=== PATIENT | male | born 1945 | race Caucasian/White ===

== ENCOUNTER 2018-06-22 06:40 | Day surgery (SDC) | payer MEDICARE, OTHER ==
[2018-06-21 16:06] LABS: BASOPHILS % (AUTO) 0.5 % (0-1); EOSINOPHILS # (AUTO) 0.4 X10'3 (0-0.9); EOSINOPHILS % (AUTO) 5.8 % (0-6); LYMPHOCYTES % (AUTO) 31.8 % (21-51); MEAN CORPUSCULAR HEMOGLOBIN 29.2 PG (27.0-31.0); MEAN CORPUSCULAR VOLUME 85.8 FL (78-98); MEAN PLATELET VOLUME 9.2 FL (7.4-10.4); MONOCYTES # (AUTO) 0.7 X10'3 (0-0.9); MONOCYTES % (AUTO) 11.7 % (2-12); NEUTROPHILS # (AUTO) 3.1 X10'3 (1.8-7.7); NEUTROPHILS % (AUTO) 50.2 % (42-75); PRE OP HEMATOCRIT 43.6 % (42.0-52.0); PRE OP HEMOGLOBIN 14.9 g/dL (14.0-17.9); PRE OP PLATELET COUNT 156 X10'3 (140-440); RED BLOOD COUNT 5.08 X10'6 (4.70-6.10); RED CELL DISTRIBUTION WIDTH 15.5 % (11.5-14.5)
[2018-06-21 16:09] LABS: CLARITY,URINE CLEAR (Clear); COLOR,URINE YELLOW (Yellow); GLUCOSE, URINE NEGATIVE (Neg); KETONES,URINE NEGATIVE (Neg); LEUKOCYTE ESTERASE ,URINE NEGATIVE (Neg); NITRITES, URINE NEGATIVE (Neg); OCCULT BLOOD,URINE NEGATIVE (Neg); PH,URINE 5.5 (4.8-8.0); PROTEIN,URINE NEGATIVE (Neg); UA COLLECTION TYPE CLN CATCH MIDSTREAM; UROBILINOGEN,URINE 0.2 E.U/dL (0.2-1.0)
[2018-06-21 16:21] LABS: ALBUMIN/GLOBULIN RATIO 1.2 (1.1-1.5); ALKALINE PHOSPHATASE 61 IU/L (46-116); BLOOD UREA NITROGEN 19 MG/DL (7-18); BUN/CREATININE RATIO 18.1 (5.4-32.0); CALCIUM 8.9 MG/DL (8.5-10.1); CHLORIDE 100 MMOL/L (99-107); CREATININE 1.05 MG/DL (0.60-1.10); PRE OP ALT 28 U/L (30-65); PRE OP ANION GAP 11 (8-16); PRE OP AST 23 U/L (10-37); PRE OP BILIRUB, TOTAL 0.6 MG/DL (0.0-1.0); PRE OP GLUCOSE 107 MG/DL (70-104); PRE OP POTASSIUM 4.5 MMOL/L (3.4-5.1); PRE OP SODIUM 138 MMOL/L (135-145); TOTAL CARBON DIOXIDE 27.3 MMOL/L (24-32); TOTAL PROTEIN 7.3 G/DL (6.4-8.2); eGFR 69 ML/MIN
[2018-06-22] VITALS (12 sets, daily range): BP systolic 112–185; BP diastolic 72–132
[~2018-06-22] VITALS: Ht 188 cm; Wt 125.1 kg
[~2018-06-22 06:40] MED LIST: ALPR-624 PO; ATOR20TA PO; CITA-279 PO; Cefazolin 2GM/50ML dext iso,osmotic IVPB IV ONE; FINA5TAB11 PO; famotidine 20mg tablet PO ONE; ringers solution, lacted 1,000 ML IV SCH
[2018-06-22] MEDS ORDERED: LIDOcaine 1% (10mg/ml) 2ml vial ONE (07:22)
[2018-06-22] MEDS ORDERED: ceFAZolin 1000mg inj ONE (09:55)
[2018-06-22] MEDS ORDERED: BUPIVAcaine/PF 2.5mg/ml (0.25%) 10ml vial ONE (09:56)
[2018-06-22] MEDS ORDERED: sevoflurane 250ml liquid IH ONE (10:00)
[2018-06-22] MEDS ORDERED: neostigmine methylsulfate 1 MG/ML 10ml vial ONE (10:00)
[2018-06-22] MEDS ORDERED: dexamethasone sod phosphate 10mg/ml inj ONE (10:00)
[2018-06-22] MEDS ORDERED: midazolam 2 mg/2 ml injection ONE (10:11)
[2018-06-22] MEDS ORDERED: glycopyrrolate 0.2mg/ml inj ONE (10:18)
[2018-06-22] MEDS ORDERED: fentaNYL/PF 50MCG/1 ML 2ML syringe ONE (10:18)
[2018-06-22] MEDS ORDERED: propofol inj 20 ML IV ONE (10:18)
[2018-06-22] MEDS ORDERED: rocuronium 10mg/ml inj IV ONE (10:18)
[2018-06-22] MEDS ORDERED: LIDOcaine 2% (20mg/ml) 5ml vial ONE (10:18)
[2018-06-22] MEDS ORDERED: ePHEDrine 50MG/ML INJ. ONE (10:25)
[2018-06-22] MEDS ORDERED: ondansetron/PF 4mg/2ml inj ONE (10:28)
[2018-06-22] MEDS ORDERED: ringers solution, lacted 1,000 ML IV SCH (10:53)
[2018-06-22] MEDS ORDERED: hydrALAZINE 20mg/ml inj. IV PRN (10:55)
[2018-06-22] MEDS ORDERED: ondansetron/PF 4mg/2ml inj IV PRN (10:55)
[2018-06-22] MEDS ORDERED: morphine 4 MG/ML inj SYRINge IV PRN (10:55)
[2018-06-22] MEDS ORDERED: labetalol 20mg/4ml (5mg/ml) syringe IV PRN (10:55)
[2018-06-22] MEDS: morphine 4 MG/ML inj SYRINge IV PRN ×3 (11:51→12:21)
[2018-06-22] MEDS ORDERED: meperidine/PF 25mg/ml syringe ONE (12:06)
[2018-06-22] MEDS ORDERED: acetaminophen 1,000mg/100ml IV 100 ML IV ONE (12:10)
[2018-06-22] MEDS ORDERED: ketorolac tromethamine 15mg/ml inj. IV ONE (12:10)
[2018-06-22] MEDS ORDERED: HYDROcodone/acetaminophen 10/325mg tab PO ONE (12:25)
== END 2018-06-22 13:30 | disposition home or self-care (01) ==
LOC: PRE-OP 06:40 → PAS 13:30
PROVIDERS: ATTEND Surgery
DX: K40.20 Bilateral inguinal hernia, without obstruction or gangrene, not specified as recurrent (principal); D17.1 Benign lipomatous neoplasm of skin and subcutaneous tissue of trunk; F41.8 Other specified anxiety disorders; J45.998 Other asthma; N40.0 Benign prostatic hyperplasia without lower urinary tract symptoms; E11.9 Type 2 diabetes mellitus without complications; M19.90 Unspecified osteoarthritis, unspecified site; I45.19 Other right bundle-branch block; G47.33 Obstructive sleep apnea (adult) (pediatric); E66.01 Morbid (severe) obesity due to excess calories; K21.9 Gastro-esophageal reflux disease without esophagitis; Z68.35 Body mass index [BMI] 35.0-35.9, adult; Z90.49 Acquired absence of other specified parts of digestive tract; Z79.891 Long term (current) use of opiate analgesic; Z79.2 Long term (current) use of antibiotics; Z87.891 Personal history of nicotine dependence; Z79.899 Other long term (current) drug therapy; Z98.890 Other specified postprocedural states
CPT/HCPCS: 21931; 36415; 49650; 80053; 81003; 85025; 93005; A4315; A6258; C1781; J0131; J0690; J1100; J1885; J2001; J2175; J2250; J2270; J2405; J2704; J2710; J3010; J3490; J7120

== ENCOUNTER 2018-08-03 07:07 | Day surgery (SDC) | payer MEDICARE, OTHER ==
[2018-08-03] VITALS (7 sets, daily range): BP systolic 115–148; BP diastolic 59–92
[~2018-08-03] VITALS: Ht 188 cm; Wt 124.4 kg
[2018-08-03] MEDS: ringers solution, lacted 1,000 ML IV SCH ×2 (05:00→07:43)
[~2018-08-03 07:07] MED LIST changes: -Cefazolin 2GM/50ML dext iso,osmotic IVPB IV ONE; +ceFAZolin inj. 3,000 MG in normal saline 100ml IV soln 100 ML IV ONE
[2018-08-03] MEDS ORDERED: LIDOcaine 1% (10mg/ml) 2ml vial ONE (07:31)
[2018-08-03 08:14] LABS: BASOPHILS % (AUTO) 0.8 % (0-1); EOSINOPHILS # (AUTO) 0.2 X10'3 (0-0.9); EOSINOPHILS % (AUTO) 4.2 % (0-6); HEMOGLOBIN 14.1 g/dl (14.0-17.9); LYMPHOCYTES # (AUTO) 1.3 X10'3 (1.1-4.8); LYMPHOCYTES % (AUTO) 25.6 % (21-51); MEAN CORPUSCULAR HEMOGLOBIN 29.8 PG (27.0-31.0); MEAN CORPUSCULAR HGB CONC 34.4 % (33.0-36.5); MEAN CORPUSCULAR VOLUME 86.6 FL (78-98); MEAN PLATELET VOLUME 8.9 FL (7.4-10.4); MONOCYTES # (AUTO) 0.5 X10'3 (0-0.9); MONOCYTES % (AUTO) 10.1 % (2-12); NEUTROPHILS # (AUTO) 2.9 X10'3 (1.8-7.7); NEUTROPHILS % (AUTO) 59.3 % (42-75); PLATELET COUNT 144 X10'3 (140-440); RED BLOOD COUNT 4.74 X10'6 (4.70-6.10); RED CELL DISTRIBUTION WIDTH 16.2 % (11.5-14.5); WHITE BLOOD COUNT 4.9 X10'3 (4.5-11.0)
[2018-08-03 08:26] LABS: ALANINE AMINOTRANSFERASE 32 U/L (12-78); ALBUMIN 3.8 G/DL (3.4-5.0); ALBUMIN/GLOBULIN RATIO 1.2 (1.1-1.5); ALKALINE PHOSPHATASE 60 IU/L (46-116); ANION GAP 9 (8-16); ASPARTATE AMINO TRANSFERASE 16 U/L (10-37); BLOOD UREA NITROGEN 19 MG/DL (7-18); BUN/CREATININE RATIO 17.8 (5.4-32.0); CHLORIDE 104 MMOL/L (99-107); CREATININE 1.07 MG/DL (0.60-1.10); GLUCOSE 130 MG/DL (70-104); POTASSIUM 4.5 MMOL/L (3.5-5.1); SODIUM 140 MMOL/L (135-145); TOTAL CARBON DIOXIDE 27.3 MMOL/L (24-32); TOTAL PROTEIN 6.9 G/DL (6.4-8.2); eGFR 68 ML/MIN
[2018-08-03] MEDS ORDERED: BUPIVAcaine/PF 2.5mg/ml (0.25%) 10ml vial ONE (08:33)
[2018-08-03] MEDS ORDERED: bacitracin 15gm ointment TP ONE (08:33)
[2018-08-03] MEDS ORDERED: ceFAZolin 1000mg inj ONE (08:33)
[2018-08-03] MEDS ORDERED: sevoflurane 250ml liquid IH ONE (10:40)
[2018-08-03] MEDS ORDERED: fentaNYL/PF 50MCG/1 ML 2ML syringe ONE (10:49)
[2018-08-03] MEDS ORDERED: propofol inj 20 ML IV ONE (11:17)
[2018-08-03] MEDS ORDERED: LIDOcaine 2% (20mg/ml) 5ml vial ONE (11:17)
[2018-08-03] MEDS ORDERED: ondansetron/PF 4mg/2ml inj ONE (11:17)
[2018-08-03] MEDS ORDERED: HYDROmorphone inj. 0.5 MG/0.5 ML DISP.SYRIN IV PRN (11:35)
[2018-08-03] MEDS ORDERED: ringers solution, lacted 1,000 ML IV SCH (11:35)
[2018-08-03] MEDS ORDERED: ondansetron/PF 4mg/2ml inj IV PRN (11:35)
[2018-08-03] MEDS ORDERED: morphine 4 MG/ML inj SYRINge IV PRN ×2 (11:35→11:44)
[2018-08-03] MEDS ORDERED: morphine 2 MG/ML inj. syringe IV PRN (11:43)
[2018-08-03] MEDS ORDERED: HYDROmorphone 1 mg/ml syringe ONE (11:52)
== END 2018-08-03 12:25 | disposition home or self-care (01) ==
LOC: PAS 07:07
PROVIDERS: ATTEND Surgery
DX: N99.840 Postprocedural hematoma of a genitourinary system organ or structure following a genitourinary system procedure (principal); F41.8 Other specified anxiety disorders; J45.998 Other asthma; N40.0 Benign prostatic hyperplasia without lower urinary tract symptoms; M19.90 Unspecified osteoarthritis, unspecified site; G47.33 Obstructive sleep apnea (adult) (pediatric); F32.9 Major depressive disorder, single episode, unspecified; E11.42 Type 2 diabetes mellitus with diabetic polyneuropathy; K21.9 Gastro-esophageal reflux disease without esophagitis; E66.01 Morbid (severe) obesity due to excess calories; I45.19 Other right bundle-branch block; Z68.35 Body mass index [BMI] 35.0-35.9, adult; Z87.891 Personal history of nicotine dependence; Z90.49 Acquired absence of other specified parts of digestive tract; Z79.2 Long term (current) use of antibiotics; Z79.891 Long term (current) use of opiate analgesic; Z98.890 Other specified postprocedural states; Z79.899 Other long term (current) drug therapy
CPT/HCPCS: 36415; 54700; 80053; 85025; J0690; J1170; J2001; J2405; J2704; J3010; J3490; J7030; J7120; 88304; A7000; J2270

== ENCOUNTER 2019-07-26 05:24 | Observation (INO) | payer MEDICARE, OTHER ==
[2019-07-24 16:20] LABS: BASOPHILS # (AUTO) 0.1 X10'3 (0-0.2); BASOPHILS % (AUTO) 0.9 % (0-1); EOSINOPHILS # (AUTO) 0.3 X10'3 (0-0.9); EOSINOPHILS % (AUTO) 3.8 % (0-6); LYMPHOCYTES # (AUTO) 1.8 X10'3 (1.1-4.8); LYMPHOCYTES % (AUTO) 25.7 % (21-51); MEAN CORPUSCULAR HEMOGLOBIN 29.9 PG (27.0-31.0); MEAN CORPUSCULAR HGB CONC 33.7 g/dL (33.0-36.5); MEAN CORPUSCULAR VOLUME 88.7 FL (78-98); MEAN PLATELET VOLUME 9.2 FL (7.4-10.4); MONOCYTES # (AUTO) 0.7 X10'3 (0-0.9); MONOCYTES % (AUTO) 9.5 % (2-12); NEUTROPHILS # (AUTO) 4.3 X10'3 (1.8-7.7); NEUTROPHILS % (AUTO) 60.1 % (42-75); PRE OP HEMATOCRIT 47.1 % (42.0-52.0); PRE OP HEMOGLOBIN 15.8 g/dL (14.0-17.9); PRE OP PLATELET COUNT 144 X10'3 (140-440); RED BLOOD COUNT 5.31 X10'6 (4.70-6.10); RED CELL DISTRIBUTION WIDTH 14.1 % (11.5-14.5)
[2019-07-24 16:31] LABS: CLARITY,URINE SLIGHTLY CLOUDY (Clear); COLOR,URINE YELLOW (Yellow); GLUCOSE, URINE NEGATIVE (Neg); KETONES,URINE NEGATIVE (Neg); LEUKOCYTE ESTERASE ,URINE NEGATIVE (Neg); NITRITES, URINE NEGATIVE (Neg); OCCULT BLOOD,URINE NEGATIVE (Neg); PROTEIN,URINE NEGATIVE (Neg); UROBILINOGEN,URINE 0.2 E.U/dL (0.2-1.0)
[2019-07-24 16:32] LABS: UA COLLECTION TYPE CLN CATCH MIDSTREAM
[2019-07-24 16:46] LABS: BACTERIA,URINE NONE SEEN /HPF (Neg); RBC,URINE NONE SEEN /HPF (0-2); SQUAMOUS EPITHELIAL CELL,UR FEW /LPF (FEW); WBC,URINE NONE SEEN /HPF (0-4)
[2019-07-24 16:46] LABS: ALBUMIN 4.2 G/DL (3.4-5.0); ALBUMIN/GLOBULIN RATIO 1.4 (1.1-1.5); ALKALINE PHOSPHATASE 50 IU/L (46-116); BLOOD UREA NITROGEN 25 MG/DL (7-18); BUN/CREATININE RATIO 23.1 (5.4-32.0); CALCIUM 8.6 MG/DL (8.5-10.1); CHLORIDE 104 MMOL/L (99-107); CREATININE 1.08 MG/DL (0.60-1.10); PRE OP ALT 31 U/L (30-65); PRE OP ANION GAP 10 (8-16); PRE OP AST 25 U/L (10-37); PRE OP BILIRUB, TOTAL 0.6 MG/DL (0.0-1.0); PRE OP GLUCOSE 110 MG/DL (70-104); PRE OP POTASSIUM 4.4 MMOL/L (3.4-5.1); PRE OP SODIUM 140 MMOL/L (135-145); TOTAL PROTEIN 7.1 G/DL (6.4-8.2); eGFR 67 ML/MIN
[~2019-07-26] VITALS: Ht 188 cm; Wt 120.0 kg
[2019-07-26] VITALS (24 sets, daily range): BP systolic 106–160; BP diastolic 54–106
[~2019-07-26 05:24] MED LIST changes: -ATOR20TA PO; +CITA-157 PO; -CITA-279 PO; +GABA800T PO; -ceFAZolin inj. 3,000 MG in normal saline 100ml IV soln 100 ML IV ONE; -famotidine 20mg tablet PO ONE; -ringers solution, lacted 1,000 ML IV SCH
[2019-07-26] MEDS ORDERED: LIDOcaine 1% (10mg/ml) 2ml vial ONE (05:50)
[2019-07-26] MEDS: ringers solution, lacted 1,000 ML IV SCH ×2 (06:01→12:00)
[2019-07-26] MEDS ORDERED: cefazolin/dext.iso 2gm/100 ML IV ONE (06:30)
[2019-07-26] MEDS ORDERED: famotidine 20mg tablet PO ONE (06:30)
[2019-07-26] MEDS ORDERED: BUPIVAcaine/PF 2.5mg/ml (0.25%) 10ml vial ONE ×2 (06:45→08:14)
[2019-07-26] MEDS ORDERED: ceFAZolin 1000mg inj ONE (06:45)
[2019-07-26] MEDS ORDERED: ringers solution, lacted 1,000 ML IV SCH (07:20)
[2019-07-26] MEDS ORDERED: morphine 4 MG/ML inj SYRINge IV PRN (07:20)
[2019-07-26] MEDS ORDERED: ondansetron/PF 4mg/2ml inj IV PRN ×2 (07:20→09:40)
[2019-07-26] MEDS ORDERED: hydrALAZINE 20mg/ml inj. IV PRN (07:20)
[2019-07-26] MEDS ORDERED: fentaNYL/PF 50MCG/1 ML 2ML syringe IV PRN ×2 (07:20)
[2019-07-26] MEDS ORDERED: labetalol 20mg/4ml (5mg/ml) syringe IV PRN (07:20)
[2019-07-26] MEDS ORDERED: dexamethasone sod phosphate 4mg/ml inj. ONE (07:26)
[2019-07-26] MEDS ORDERED: glycopyrrolate 0.2mg/ml inj ONE ×2 (07:26→08:14)
[2019-07-26] MEDS ORDERED: midazolam 2 mg/2 ml injection ONE (07:26)
[2019-07-26] MEDS ORDERED: neostigmine methylsulfate 1 MG/ML 10ml vial ONE ×2 (07:26→08:14)
[2019-07-26] MEDS ORDERED: rocuronium 10mg/ml inj IV ONE (07:26)
[2019-07-26] MEDS ORDERED: fentaNYL/PF 50MCG/1 ML 2ML syringe ONE (07:26)
[2019-07-26] MEDS ORDERED: LIDOcaine 2% (20mg/ml) 5ml vial ONE (07:27)
[2019-07-26] MEDS ORDERED: propofol inj 20 ML IV ONE (07:27)
[2019-07-26] MEDS ORDERED: ondansetron/PF 4mg/2ml inj ONE (07:27)
[2019-07-26] MEDS ORDERED: ePHEDrine 50MG/ML INJ. ONE (07:44)
[2019-07-26] MEDS ORDERED: sugammadex 200mg/2ml injection IV ONE (08:07)
--- NOTE | 2019-07-26 08:32 | NUR ---
Received from OR via BED, accompanied by Anesthesiologist DR PAUL and report given by Anesthesiologist. PT DROWSY, DENIES PAIN, ABDOMEN W/2 LAP SITES W/BANDAIDS COVERING, CDI. Addendum: 07/26/19 at 0854 by Belia Panda RN Amended: Links added.
[2019-07-26] MEDS: morphine 4 MG/ML inj SYRINge IV PRN ×2 (09:23→09:49)
[2019-07-26] MEDS ORDERED: morphine 2 MG/ML inj. syringe IV PRN (09:40)
[2019-07-26] MEDS ORDERED: magnesium hydroxide 30ml (MOM) UD suspension PO PRN (09:40)
[2019-07-26] MEDS ORDERED: acetaminophen 325mg tablet PO PRN (09:40)
[2019-07-26] MEDS ORDERED: mag hydrox/Alum hydrox/simeth 30ml oral suspension PO PRN (09:40)
[2019-07-26] MEDS ORDERED: ALPRAZolam 0.5mg tablet PO PRN (10:10)
--- NOTE | 2019-07-26 10:32 | NUR ---
Report called to receiving nurse. Transferred via BED, 1 BAG OF PT Belongings SENT W/PT TO ROOM 355A, PT UP AND WAS ABLE TO AMBULATE TO BED WITH MINIMAL STANDBY ASSIST, RECEIVING RN AT BEDSIDE TO RECEIVE PT, BLL, CALL LIGHT GIVEN, SIDE RAILS UP X 2. Special Issues communicated to receiving nurse. YES. Addendum: 07/26/19 at 1058 by Belia Panda RN Amended: Links added.
--- NOTE | 2019-07-26 10:33 | NUR ---
Patient in room . I have received report from Belia LOCKETT in Recovery and had the opportunity to ask questions will assume patient care when he gets to the floor.
[2019-07-26] MEDS: HYDROcodone/acetaminophen 10/325mg tab PO PRN (15:50)
--- NOTE | 2019-07-26 18:30 | NUR ---
Patient in room [facility]. I have received report from Meenakshi LOCKETT and had the opportunity to ask questions and assume patient care. Patient finishing dinner, will continue to monitor.
--- NOTE | 2019-07-26 18:40 | NUR ---
Problems reprioritized. Patient report given, questions answered & plan of care reviewed with Bess LOCKETT.
[2019-07-26] MEDS: normal saline 1000ml 1,000 ML IV SCH (20:09)
[2019-07-26] MEDS: gabapentin 400mg capsule PO SCH (20:18)
[2019-07-26] MEDS ORDERED: finasteride 5mg tablet PO SCH (21:00)
[2019-07-26] MEDS ORDERED: citalopram 20mg tablet PO SCH (21:00)
--- NOTE | 2019-07-26 22:00 | NUR ---
Patient refused to walk despite education on importance of walking to decrease risks of DVTs and increase bowel sounds. Will continue to monitor.
[2019-07-27] VITALS: BP 101/59
[2019-07-27] MEDS: normal saline 1000ml 1,000 ML IV SCH (05:36)
[2019-07-27 07:00] VITALS: BP 130/80
[2019-07-27] MEDS: gabapentin 400mg capsule PO SCH (08:00)
[2019-07-27] MEDS: HYDROcodone/acetaminophen 10/325mg tab PO PRN (08:01)
[2019-07-27 11:00] VITALS: BP 115/65
--- NOTE | 2019-07-27 14:30 | NUR ---
Patients discharge instructions reviewed with patient and patient verbalized understanding. Patients IV dc's cannula intact. Patients discharge medications were retreived from pharmacy and these medications were delivered by [facility] ( [place]) Patient ambulated to lobby with PCT David, Where patients ride was waiting for him.
== END 2019-07-27 14:30 | disposition home or self-care (01) ==
LOC: PAS 05:24 → SUR 3N 09:36 → UNDOADMOB 11:37 → SUR 3N 11:37
PROVIDERS: ADMIT Surgery; ATTEND Surgery
DX: K40.20 Bilateral inguinal hernia, without obstruction or gangrene, not specified as recurrent (principal); K66.0 Peritoneal adhesions (postprocedural) (postinfection); F41.9 Anxiety disorder, unspecified; J45.909 Unspecified asthma, uncomplicated; N40.0 Benign prostatic hyperplasia without lower urinary tract symptoms; N43.3 Hydrocele, unspecified; Z87.891 Personal history of nicotine dependence
CPT/HCPCS: 36415; 49329; 80053; 81001; 82948; 85025; 93005; 96374; 96376; C9399; G0378; J0690; J1100; J2001; J2250; J2270; J2405; J2704; J2710; J3010; J3490; J7030; J7120; A4215; A4314; A4618; A7000